=== PATIENT | male | born 1990 | race Caucasian/White ===

== ENCOUNTER 2017-05-15 16:54 | Emergency (ER) | payer OTHER ==
[2017-05-15 17:17] VITALS: O2SAT 100
[2017-05-15] MEDS ORDERED: Lidocaine 1% Inj (20ml) IJ STA (17:26)
--- NOTE | 2017-05-15 17:30 | ED PDOC ---
Arrival/HPI - General Chief Complaint: Upper Extremity Problem/Injury Time Seen by Provider: 05/15/17 17:21 Historian: Patient - History of Present Illness Narrative History of Present Illness (Text): 05/15/17 17:27 26 y/o male, pmh including chronic rt. shoulder dislocation, nkda, c/o rt. shoulder dislocation x 1 hour s/p rt. shoulder abduction with external movement. Pt. stated he was trying to swing to throw the ball, feel the rt. shoulder dislocation, afraid to reduced himself, no numbness or tingling, no fever or chills, no night sweat, no dizziness, no other medical or psychological complaints. Past Medical History - Provider Review Nursing Documentation Reviewed: Yes - Infectious Disease Hx of Infectious Diseases: None - Tetanus Immunization Tetanus Immunization: Unknown - Past Medical History Past Medical History: Non-Contributing - Psychiatric Hx Substance Use: Yes (marijuana) - Surgical History Hx Musculoskeletal Surgery: Yes (L JAW) Hx Orthopedic Surgery: Yes (R SHOULDER) Other/Comment: Previous R shoulder dislocations - Anesthesia Hx Anesthesia: No Hx Anesthesia Reactions: No Hx Malignant Hyperthermia: No - Suicidal Assessment Feels Threatened In Home Enviroment: No Family/Social History - Physician Review Nursing Documentation Reviewed: Yes Family/Social History: Unknown Family HX Smoking Status: Light Smoker < 10 Cigarettes Daily Hx Alcohol Use: Yes Hx Substance Use: Yes (marijuana) Allergies/Home Meds Allergies/Adverse Reactions: Allergies seafood Allergy (Uncoded 05/15/17 17:22) RASH Review of Systems - Review of Systems Constitutional: absent: Fatigue, Fevers Eyes: absent: Vision Changes ENT: absent: Hearing Changes Respiratory: absent: SOB, Cough Cardiovascular: absent: Chest Pain Gastrointestinal: absent: Abdominal Pain, Nausea, Vomiting Musculoskeletal: Arthralgias. absent: Back Pain, Neck Pain, Joint Swelling, Myalgias Skin: absent: Rash, Pruritis, Skin Lesions Neurological: absent: Headache, Dizziness, Focal Weakness Physical Exam Vital Signs Reviewed: Yes Vital Signs Temp Pulse Resp BP Pulse Ox 05/15/17 21:44 76 16 105/76 100 05/15/17 20:15 70 19 121/62 100 05/15/17 19:30 98.3 F 76 20 119/61 100 05/15/17 19:15 98.3 F 57 L 18 107/60 100 05/15/17 19:00 98.3 F 66 20 112/58 L 100 05/15/17 18:17 98.3 F 77 22 127/71 05/15/17 17:00 98.2 F 71 16 105/66 100 Temperature: Afebrile Blood Pressure: Normal Pulse: Regular Respiratory Rate: Normal Appearance: Positive for: Well-Appearing, Non-Toxic Pain Distress: Moderate Mental Status: Positive for: Alert and Oriented X 3 - Systems Exam Head: Present: Atraumatic, Normocephalic Pupils: Present: PERRL Extroacular Muscles: Present: EOMI Conjunctiva: Present: Normal Mouth: Present: Moist Mucous Membranes Neck: Present: Normal Range of Motion Respiratory/Chest: Present: Clear to Auscultation, Good Air Exchange. No: Respiratory Distress, Accessory Muscle Use Cardiovascular: Present: Regular Rate and Rhythm, Normal S1, S2. No: Murmurs Abdomen: Present: Normal Bowel Sounds. No: Tenderness, Distention, Peritoneal Signs Back: Present: Normal Inspection Upper Extremity: Present: Normal Inspection, Other (Rt. shoulder: +deformity on the joint with the step off, no humerus tenderness, neurovascular intact with able to move the rt. elbow/wrist/hand/5 fingers, sensation intact, motor 5/5, + radial pulse, capillary refill< 2 seconds, neurovasclar intact. ). No: Cyanosis , Edema Lower Extremity: Present: Normal Inspection. No: Edema Neurological: Present: GCS=15, CN II-XII Intact, Speech Normal Skin: Present: Warm, Dry, Normal Color. No: Rashes Psychiatric: Present: Alert, Oriented x 3, Normal Insight, Normal Concentration Medical Decision Making ED Course and Treatment: 05/15/17 17:30 -Dilaudid 1mg IM -rt. shoulder xray -will prepare for shoulder reduction. 05/15/17 18:10 -Rt. shoulder reduction with the intra-articular is unsuccessful due to the patient is tensing while trying to reduce, will try the conscious sedation. -Consent obtained and discussed with Dr. Guadalupe, agreed with the versed and ketamine. 05/15/17 19:16 -sling and swab applied with neurovasular intact. 05/15/17 20:03 -Pt. is awake, feeling nauseous, IVF with zofran ordered, will continue to monitor until at the baseline. 05/15/17 21:31 -Pt. is currently fully awake, feeling completely well and fine, no nystagmus or any neurological deficits, girlfriend is driving him home, observe in the ER for over 1.5 hours, will discharge home. -Discharge home with naproxen, sling and swab, ice compression, follow up with your own pmd and orthopedic within 2 days, return to the ER for any new or worsening signs or symptoms. - RAD Interpretation Radiology Orders: 05/15/17 17:26 SHOULDER RIGHT [RAD] Stat 05/15/17 18:47 SHOULDER RIGHT [RAD] Stat Rt. shoulder initial xray: +anterior inferior shoulder dislocation with no fracture Rt. shoulder post reduction: no fracture or dislocation. 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 - Medication Orders Current Medication Orders: Discontinued Medications Hydromorphone HCl (Dilaudid) 1 mg IM STAT STA Stop: 05/15/17 17:38 Last Admin: 05/15/17 17:45 Dose: 1 mg Sodium Chloride (Sodium Chloride 0.9%) 1,000 mls @ 999 mls/hr IV .Q1H1M STA Stop: 05/15/17 19:09 Last Admin: 05/15/17 18:20 Dose: 999 mls/hr Sodium Chloride (Sodium Chloride 0.9%) 1,000 mls @ 500 mls/hr IV .Q2H CHERI Last Admin: 05/15/17 20:15 Dose: 500 mls/hr Ketamine HCl (Ketalar) 60 mg IV ONCE ONE Stop: 05/15/17 18:17 Last Admin: 05/15/17 18:30 Dose: 60 mg Ketamine HCl (Ketalar) 60 mg IV ONCE ONE Stop: 05/15/17 19:13 Last Admin: 05/15/17 18:45 Dose: 60 mg Lidocaine HCl (Lidocaine 1% (20ml)) 10 ml IJ STAT STA Stop: 05/15/17 17:27 Last Admin: 05/15/17 17:44 Dose: 10 ml Midazolam HCl (Versed Inj) 2 mg IVP STAT STA Stop: 05/15/17 18:18 Last Admin: 05/15/17 18:29 Dose: 2 mg Ondansetron HCl (Zofran Inj) 4 mg IVP STAT STA Stop: 05/15/17 20:04 Last Admin: 05/15/17 20:15 Dose: 4 mg ED Procedural Sedation - Pre Anesthesia Assessment Chief Complaint: Upper Extremity Problem/Injury - Pre-Procedure Airway Assessment ASA Criteria: 1 - Healthy, normal. 2 - Mild systemic disease (No functional limitations, mildline obesity, DM withot complications, Hypertention). 3 - Severe systemic disease (Some functional limitation, stable angina, morbid obesity, controlled COPD/Asthma/CHF). 4 - Sever systemic disease constant threat to life (Unstable angina, active symptoms of COPD/Asthma, CHF/ Hypertension. 5 - Moribund Nursing ED Procedural Sedation: ER Moderate Sedation Start: 05/15/17 18: 17 Freq: Status: Active Document 05/15/17 18:17 OCS (Rec: 05/15/17 18:19 OCS [id number]) Mod Sedation Time Out Process Time Out Process Patient identification (MR# and name Yes from ID Band) Procedure verified Yes Consent read aloud and agreed upon Yes Correct Site/Side marked and visibe to Yes team after prepping and draping (unless exempt) Implants, special equipment and x-rays Yes available Prophylactic antibiotic given (if Not Applicable applicable) Correct position Yes Correct Team Yes All team members are in agreement Yes Pre-Procedure Mod Sedation Pre-Procedure Checklist Patient's identity verified by Patient stating name Patient stating [facility] bracelet Family member Pre Procedure Checklist BP monitor Signed consent Ambu bag Patient IV Patient ID Oxygen Airway Code Cart End Tidal CO2 Suction set up Pre Anesthesia Assessment Chief Complaint Upper Extremity Problem/Injury Moderate Sedation VS & Pain Ax Level of Consciousness Level of Consciousness 1 = Alert Pulse Pulse Rate (60-90 beats/min) 60 Respirations Respiratory Rate (12-24 breaths/min) 16 Oxygen Delivery Method Room Air Blood Pressure Blood Pressure (100/60-150/90 mm Hg) 115/71 Cardiac Rhythm Cardiac Rhythm Normal Sinus Pain Pain Intensity 10 Pain Scale Used Numeric Edit Result 05/15/17 18:17 OCS (Rec: 05/15/17 18:19 OCS [id number]) Moderate Sedation VS & Pain Ax Temperature Temperature (97.6 F-99.6 F) 98.3 F Edit Result 05/15/17 18:17 OCS (Rec: 05/15/17 19:09 OCS [id number]) Intra-Procedure Vital Signs Vital Signs and Pain Assessment Blood Pressure (100/60-150/90 mm Hg) 127/78 Pulse Rate (60-90 beats/min) 77 Respiratory Rate (12-24 breaths/min) 22 Level of Consciousness 2 = Occasionally Drowsy, Easy to Arouse Pain Intensity 10 Cardiac Rhythm Normal Sinus Intra-Procedure Vital Signs #2 Vital Signs and Pain Assessment Blood Pressure (100/60-150/90 mm Hg) 132/62 Pulse Rate (60-90 beats/min) 65 Respiratory Rate (12-24 breaths/min) 22 Level of Consciousness 2 = Occasionally Drowsy, Easy to Arouse Pain Intensity 10 Cardiac Rhythm Normal Sinus Intra-Procedure Vital Signs #3 Vital Signs and Pain Assessment Blood Pressure (100/60-150/90 mm Hg) 131/82 Pulse Rate (60-90 beats/min) 90 Respiratory Rate (12-24 breaths/min) 22 Level of Consciousness 4 = Difficult to Arouse, Inappropriate resp to Physical /Verbal Stimuli Pain Intensity 10 Cardiac Rhythm Normal Sinus Intra-Procedure Vital Signs #4 Vital Signs and Pain Assessment Blood Pressure (100/60-150/90 mm Hg) 127/71 Pulse Rate (60-90 beats/min) 77 Respiratory Rate (12-24 breaths/min) 22 Level of Consciousness 4 = Difficult to Arouse, Inappropriate resp to Physical /Verbal Stimuli Cardiac Rhythm Normal Sinus Edit Result 05/15/17 18:17 OCS (Rec: 05/15/17 19:12 [id number] REACT Score REACT Score Respirations Spontaneous Respirations > 10 Without Airway Support Energy Moves Legs: Can Keep Head Up Alertness Awake Seldom Dozes Circulation Systolic BP At PreOp or Above Full Pulse Temperature Temperature is >96 Degrees Farenheit Created 05/15/17 18:17 OCS (Rec: 05/15/17 18:17 OCS [id number]) - Intra-Procedure (Medications) Medications Given: Discontinued Medications Hydromorphone HCl (Dilaudid) 1 mg IM STAT STA Stop: 05/15/17 17:38 Last Admin: 05/15/17 17:45 Dose: 1 mg Sodium Chloride (Sodium Chloride 0.9%) 1,000 mls @ 999 mls/hr IV .Q1H1M STA Stop: 05/15/17 19:09 Last Admin: 05/15/17 18:20 Dose: 999 mls/hr Sodium Chloride (Sodium Chloride 0.9%) 1,000 mls @ 500 mls/hr IV .Q2H CHERI Last Admin: 05/15/17 20:15 Dose: 500 mls/hr Ketamine HCl (Ketalar) 60 mg IV ONCE ONE Stop: 05/15/17 18:17 Last Admin: 05/15/17 18:30 Dose: 60 mg Ketamine HCl (Ketalar) 60 mg IV ONCE ONE Stop: 05/15/17 19:13 Last Admin: 05/15/17 18:45 Dose: 60 mg Lidocaine HCl (Lidocaine 1% (20ml)) 10 ml IJ STAT STA Stop: 05/15/17 17:27 Last Admin: 05/15/17 17:44 Dose: 10 ml Midazolam HCl (Versed Inj) 2 mg IVP STAT STA Stop: 05/15/17 18:18 Last Admin: 05/15/17 18:29 Dose: 2 mg Ondansetron HCl (Zofran Inj) 4 mg IVP STAT STA Stop: 05/15/17 20:04 Last Admin: 05/15/17 20:15 Dose: 4 mg Procedures - Joint Reduction Joint Reduction Site: shoulder (R) Conscious Sedation: Yes (versed 2mg, initial ketamine 60mg. 2nd round of ketamine 60mg) Reduction Attempts: 3 Pre-Procedure NV Exam: Yes Post Joint Reduction Film: joint reduced Progress: -Sensation intact, motor 5/5, clean with betadine and wiped with alcohol pad, lidocaine 1% 10cc injected to the joint space under sterile procedure, bacitracin and bandage dressing, rt. upper extremity reduced was unsuccessful due to the patient is tensing. -Pt. initially given versed 2mg IV and ketamine 60mg IV, attempted to perform with the traction and counter traction but the patient is still awake and with no success after 2 attempts. Additional 60mg IV ketamine given, reduction success with external rotation and abduction with spontaneously heard "clunk" sound with the deformity resolved, sensation intact, motor 5/5, able to move the entire rt. upper extremity including the shoulder with no difficulty or pain. Entire procedure under direct supervision by Dr. Guadalupe. - PA / ROLL BUCKER / Resident Statement / has reviewed & agrees with the documentation as recorded. / has examined the patient and agrees with the treatment plan. Disposition/Present on Arrival - Present on Arrival Any Indicators Present on Arrival: No History of DVT/PE: No History of Uncontrolled Diabetes: No Urinary Catheter: No History of Decub. Ulcer: No History Surgical Site Infection Following: None - Disposition Have Diagnosis and Disposition been Completed?: Yes Diagnosis: Shoulder dislocation, Shoulder injury Disposition: HOME/ ROUTINE Disposition Time: 19:16 Patient Plan: Discharge Condition: IMPROVED Additional Instructions: -Discharge home with naproxen, sling and swab, ice compression, follow up with your own pmd and orthopedic within 2 days, return to the ER for any new or worsening signs or symptoms. Prescriptions: Naproxen 500 mg PO BID PRN #20 tab PRN Reason: Other Referrals: PCP,NO [Primary Care Provider] - Follow up with primary Lyly George MD [Staff Provider] - Follow up with primary [facility] [place] - Follow up with primary Forms: [employer] (Hungarian), WORK NOTE
[2017-05-15] MEDS ORDERED: HYDROmorphone 2 mg/ml ISec IM STA (17:35)
[2017-05-15] MEDS ORDERED: HYDROmorphone 1 mg/ml ISec IM STA (17:37)
[2017-05-15] MEDS ORDERED: Sodium Chloride 0.9% 1,000 ML IV STA (18:09)
[2017-05-15] MEDS ORDERED: Ketamine 10 mg/ml Inj (20 ml) IV ONE ×2 (18:16→19:12)
[2017-05-15 18:17] VITALS: BMI 21.6
[2017-05-15] MEDS ORDERED: Midazolam 2 MG/2 ML VIAL IVP STA (18:17)
[2017-05-15 18:19] VITALS: TEMP 98.3
--- NOTE | 2017-05-15 18:46 | RAD ---
PROCEDURE: Radiographs of the Right Shoulder HISTORY: rt. shoulder dislocation COMPARISON: 07/28/2015 FINDINGS: BONES: Anterior inferior dislocation of the humeral head relative to the glenoid. No evident fracture. SOFT TISSUES: Normal. OTHER FINDINGS: None. IMPRESSION: Recurrent dislocation right shoulder. No associated fracture. Concordant results with the preliminary interpretation rendered by the emergency department physician procedure.
[2017-05-15] MEDS ORDERED: Sodium Chloride 0.9% 1,000 ML IV SCH (20:15)
[2017-05-15 21:49] VITALS: BP 105/76; PULSE 76; RESP 16
--- NOTE | 2017-05-16 09:07 | RAD ---
PROCEDURE: Radiographs of the Right Shoulder HISTORY: reduction COMPARISON: No prior. FINDINGS: BONES: Normal. No fracture. JOINTS: Successful reduction of dislocation SOFT TISSUES: Normal. OTHER FINDINGS: None. IMPRESSION: Successful reduction of dislocation
== END 2017-05-15 21:49 | disposition home or self-care (01) ==
LOC: ED 16:54
DX: S43.004A Unspecified dislocation of right shoulder joint, initial encounter (principal); X50.9XXA Other and unspecified overexertion or strenuous movements or postures, initial encounter; F17.210 Nicotine dependence, cigarettes, uncomplicated
CPT/HCPCS: 23650; 73030; 96372; 96374; 99284; J1170; J2250; J2405; J7040